=== PATIENT | female | born 1955 | race Caucasian/White ===

== ENCOUNTER 2018-11-16 16:30 | Emergency (ER) | payer OTHER ==
[~2018-11-16] VITALS: Ht 162.6 cm; Wt 43.1 kg
[~2018-11-16 16:30] MED LIST: ALDACTONE50 MG ORAL; BLEPHAMIDE EYE D5 ML BOTH EYES; CEPHALEXIN500 MG ORAL; FUROSEMIDE40 MG ORAL; LEVAQUIN250 M1 ORAL; PREDNISONE50 MG ORAL; THIAMINE HCL100 MG ORAL; TRAMADOL HCL50 MG ORAL; [UNRECOGNIZED DRUG - OTHER]
[2018-11-16] MEDS ORDERED: GLYCOPYRROLATE PO (16:55)
[2018-11-16] MEDS ORDERED: IRON325 M1 PO (16:55)
[2018-11-16] MEDS ORDERED: SERTRALINE HCL50 MG ORAL (16:55)
[2018-11-16] MEDS ORDERED: FORMOTEROL PO (16:55)
[2018-11-16] MEDS ORDERED: METOPROLOL SUC100 MG ORAL (16:55)
[2018-11-16 17:00] VITALS: BP 174/94
--- NOTE | 2018-11-16 17:00 | NUR ---
ED Nurse Note: pt walked in due to back pain, no trauma, pt stated she been having pain at her back for a while and its been worse since 3 days ago. pt stated she has scoliosis. pt not in distress. will continue to monitor.
[2018-11-16] MEDS ORDERED: Ketorolac 60mg Inj IM ONE (17:30)
[2018-11-16] MEDS ORDERED: oxyCODONE HCL/Acetaminophen 5/325mg ORAL ONE (17:30)
--- NOTE | 2018-11-16 17:30 | NUR ---
ED Nurse Note: xray on bedside
--- NOTE | 2018-11-16 17:35 | NUR ---
ED Nurse Note: pt medicated and tolerated well.
[2018-11-16] MEDS ORDERED: NORCO 5-325 TA1 EACH ORAL (18:17)
--- NOTE | 2018-11-16 18:17 | Emergency Room Report ---
History of Present Illness General Chief Complaint: Back Pain-No Injury Source: Patient Present Illness HPI 63-year-old female history of scoliosis presents with right upper back pain after lifting elsa litter a big bag 1 week ago, patient has been taking Naprosyn however patient states she still has pain achy in nature aggravated with movement alleviated with rest no weakness no chest pain no shortness of breath presents for evaluation. She denies chest pain shortness of breath Allergies: Coded Allergies: NO KNOWN ALLERGIES (Unverified Allergy, Unknown, 11/28/14) Patient History Past Medical History: see triage record Last Menstrual Period: na Reviewed Nursing Documentation: PMH: Agreed; PSxH: Agreed Nursing Documentation-PMH Past Medical History: No History, Except For Hx Hypertension: Yes Hx Asthma: Yes Hx COPD: Yes Hx Cancer: No History Of Psychiatric Problem: Yes - depression Hx Neurological Problems: Yes Hx Tremors: Yes Hx Vertigo: Yes Hx Dizziness: Yes Hx Syncope: Yes Hx Headaches: Yes Hx Numbness: Yes Hx Weakness: Yes Hx Fatigue: Yes Review of Systems All Other Systems: negative except mentioned in HPI Physical Exam Vital Signs Date Time Temp Pulse Resp B/P (MAP) Pulse Ox O2 Delivery O2 Flow Rate FiO2 11/16/18 16:49 98.2 84 19 174/94 (120) 98 Room Air Sp02 EP Interpretation: reviewed, normal General Appearance: well appearing, no apparent distress, alert Head: normocephalic, atraumatic Eyes: bilateral eye PERRL, bilateral eye EOMI ENT: uvula midline, moist mucus membranes Neck: supple, thyroid normal, supple/symm/no masses Respiratory: lungs clear, no respiratory distress, no retraction, no accessory muscle use Cardiovascular #1: normal peripheral pulses, regular rate, rhythm, no edema, no gallop, no murmur Gastrointestinal: non tender, soft, no guarding, no rebound Musculoskeletal: normal inspection, other - Tenderness to palpation right upper back, trapezius and upper latissimus dorsi Neurologic: alert, oriented x3 Psychiatric: mood/affect normal Skin: no rash, warm/dry Medical Decision Making Diagnostic Impression: Primary Impression: Upper back strain Qualified Codes: S29.012A - Strain of muscle and tendon of back wall of thorax , initial encounter ER Course 63-year-old female presents with right upper back pain after lifting kitten litter large bag. No low susp for ACS, pneumonia. Most likely muscular strain will disposition patient home with return precautions Cures checked Pain well controlled in ED EKG Diagnostic Results EKG Time: 17:55 EP Interpretation: Atrial fibrillation, rate 86, QTc 4 8, no acute ST elevations, normal axis Chest X-Ray Diagnostic Results Chest X-Ray Diagnostic Results : Chest X-Ray Ordered: Yes # of Views/Limited/Complete: 1 View Indication: Other - right upper back pain Interpretation: other - Scoliosis present Impression: No acute disease Last Vital Signs Date Time Temp Pulse Resp B/P (MAP) Pulse Ox O2 Delivery O2 Flow Rate FiO2 11/16/18 17:00 98.2 84 19 174/94 98 Room Air Disposition: HOME, SELF-CARE Condition: Stable Scripts Hydrocodone Bit/Acetaminophen 5-325* (NORCO 5-325*) 1 Each Tablet 1 TAB ORAL Q6H PRN for For Pain, #12 TAB 0 Refills Prov: Juan Douglas MD 11/16/18 Referrals: NON PHYSICIAN (PCP) [facility] Rody Andrade [facility] Patient Instructions: Back Pain, Adult Additional Instructions: The patient was provided with discharge instructions, notified to follow-up with a primary care doctor and or specialist in the next 24-48 hours, and to return to the ED if they have worsening of their symptoms. Please note that this report is being documented using Endorse technology. This can lead to erroneous entry secondary to incorrect interpretation by the dictating instrument. Juan Douglas MD Nov 16, 2018 18:17
[2018-11-16 18:23] VITALS: BP 160/88
--- NOTE | 2018-11-16 18:23 | NUR ---
ER DISCHARGE NOTE: Patient is cleared to be discharged per ERMD, pt is aox4, on room air, with stable vital signs. pt was given dc and prescription instructions, pt was able to verbalize understanding, pt id band removed without complications. pt is able to ambulate with steady gait. pt took all belongings.
--- NOTE | 2018-11-17 11:07 | Diagnostic Imaging Report ---
Indication: Chest pain Technique: One view of the chest Comparison: none Findings: Lungs and pleural spaces are clear. The heart size is normal. There is again demonstrated thoracic scoliotic deformity. No significant interim change Impression: No acute process
--- NOTE | 2018-11-17 11:30 | Cardiology Report ---
APPROVED REPORT EKG Measurement Heart [id number] sinus with short 3-4 beats of intermittent svt Nonspecific ST and T wave abnormality Prolonged QT Abnormal ECG
== END 2018-11-16 18:23 | disposition home or self-care (01) ==
LOC: EMR 17:30
DX: S29.012A Strain of muscle and tendon of back wall of thorax, initial encounter (principal); M41.9 Scoliosis, unspecified; I10 Essential (primary) hypertension; J44.9 Chronic obstructive pulmonary disease, unspecified; F32.9 Major depressive disorder, single episode, unspecified; I48.91 Unspecified atrial fibrillation; X50.9XXA Other and unspecified overexertion or strenuous movements or postures, initial encounter; Y92.9 Unspecified place or not applicable
CPT/HCPCS: 71045; 93005; 96372; 99283

== ENCOUNTER 2019-06-21 03:20 | Inpatient (IN) | payer OTHER ==
[~2019-06-21] VITALS: Ht 162.6 cm; Wt 43.5 kg
[2019-06-21] VITALS (10 sets, daily range): BP systolic 109–158; BP diastolic 54–105
[~2019-06-21 03:20] MED LIST changes: +FORMOTEROL PO; +GLYCOPYRROLATE PO; +IRON325 M1 PO; +METOPROLOL SUC100 MG ORAL; +NORCO 5-325 TA1 EACH ORAL; +SERTRALINE HCL50 MG ORAL
--- NOTE | 2019-06-21 03:35 | NUR ---
ED Nurse Note: Recieved pt from home, here with c/o sob art rest and on exertion with intermittent chest pain at 7/10 with s/s increasing for past 2 weeks, denies fevers, diarrhea, nausea, or any toehr complaints, pt has history of COPD abd is active smoker, pt immediately gowned and placed on cardiac monitoring with heart rate of 145, o2 sat=96% on RA, will resume care as ordered and closely monitor.
[2019-06-21] MEDS ORDERED: dilTIAZem HCl 25mg/5ml Inj IVP ONE ×2 (03:45→04:45)
--- NOTE | 2019-06-21 04:10 | Emergency Room Report ---
History of Present Illness General Chief Complaint: Dyspnea/Respdistress Source: Patient Present Illness HPI Patient reports that approximately 2 weeks ago she was having some sinus pressure in the forehead on the right side in the upper facial area Soon after that she developed the congestion went down to her chest And today comes in by paramedics for worsening shortness of breath Patient has history of COPD and is currently smoking Denies any fevers Lives by herself is unknown regarding any contact with covid-19 patient's Denies any neck pain or photophobia denies any chest pain she does feel palpitation with fast heart rate as well Patient denies any previous history of irregular heart rate Allergies: Coded Allergies: NO KNOWN ALLERGIES (Unverified Allergy, Unknown, 11/28/14) COVID-19 Screening Contact w/high risk pt: No Recent Travel to affected area: No Experienced COVID-19 symptoms?: Yes COVID-19 symptoms experienced: Shortness of Breath, Cough Patient History Past Medical History: see triage record Last Menstrual Period: n/a Reviewed Nursing Documentation: PMH: Agreed; PSxH: Agreed Nursing Documentation-PMH Hx Hypertension: Yes Hx Asthma: Yes Hx COPD: Yes Hx Cancer: No Hx Neurological Problems: Yes Hx Tremors: Yes Hx Vertigo: Yes Hx Dizziness: Yes Hx Syncope: Yes Hx Headaches: Yes Hx Numbness: Yes Hx Weakness: Yes Hx Fatigue: Yes Review of Systems All Other Systems: negative except mentioned in HPI Physical Exam Vital Signs Date Time Temp Pulse Resp B/P (MAP) Pulse Ox O2 Delivery O2 Flow Rate FiO2 06/21/19 03:18 140 25 127/72 (90) 88 Non-Rebreather 10.0 Sp02 EP Interpretation: reviewed, normal General Appearance: mild distress Head: normocephalic, atraumatic Eyes: bilateral eye PERRL, bilateral eye EOMI ENT: hearing grossly normal, normal pharynx, TMs + canals normal, uvula midline Neck: full range of motion, supple, no meningismus, no bony tend Respiratory: no accessory muscle use - However mildly tachypneic, crackles, wheezing - Bilaterally Cardiovascular #1: no edema, no gallop, no JVD, no murmur, tachycardia, irregularly irregular Gastrointestinal: normal bowel sounds, non tender, soft, no mass, no organomegaly, non-distended, no guarding, no hernia, no pulsatile mass, no rebound Musculoskeletal: normal inspection Neurologic: motor strength/tone normal, filament tester III-XII nml as tested, oriented x3 , sensory intact, responsive Psychiatric: mood/affect normal Skin: no rash Lymphatic: normal inspection, no adenopathy Procedures Critical Care Time Critical Care Time ED minutes for her initial clinical presentation continued care in the emergency room multiple re-evaluations concern for covid-19 and acute decompensation with respiratory failure not including any procedural time Medical Decision Making Diagnostic Impression: Primary Impression: Respiratory distress Additional Impressions: COPD exacerbation Atrial fibrillation with RVR ER Course Patient is a fairly complex patient with multiple differential to consideration including but not limited to cardiac cardiopulmonary and vascular emergencies Patient also has history of COPD and appears to be showing some signs of Decompensation On initial evaluation also shows tachycardic findings with irregular heart rate consistent with atrial fibrillation patient reports that she has no knowledge of having an irregular heart rate Patient required multiple interventions in the ER was given repeat bolus of Cardizem Lovenox was also given along with digoxin Patient's x-ray shows COPD no obvious infiltrate Pulmonary embolism also entertained however patient saturating well, no obvious pleurisy Patient's heart rate has improved however patient required to be on drip for short period of time as well and at this time requires further inpatient care Given the patient's comorbidities and shortness of breath sensation , covid 19 r /o has also been initiated Labs Test 06/21/19 03:28 06/21/19 04:04 Arterial Blood pH 7.400 (7.350-7.450) Arterial Blood Partial Pressure CO2 44.6 mmHg (35.0-45.0) Arterial Blood Partial Pressure O2 115.8 mmHg (75.0-100.0) Arterial Blood HCO3 27.0 mmol/L (22.0-26.0) Arterial Blood Oxygen Saturation 97.7 % (95-100) Arterial Blood Base Excess 1.8 (-2-2) Tirso Test Positive White Blood Count 10.0 K/UL (4.8-10.8) Red Blood Count 5.32 M/UL (4.20-5.40) Hemoglobin 15.1 G/DL (12.0-16.0) Hematocrit 44.9 % (37.0-47.0) Mean Corpuscular Volume 84 FL (80-99) Mean Corpuscular Hemoglobin 28.3 PG (27.0-31.0) Mean Corpuscular Hemoglobin Concent 33.5 G/DL (32.0-36.0) Red Cell Distribution Width 12.6 % (11.6-14.8) Platelet Count 370 K/UL (150-450) Mean Platelet Volume 6.0 FL (6.5-10.1) Neutrophils (%) (Auto) 66.1 % (45.0-75.0) Lymphocytes (%) (Auto) 20.1 % (20.0-45.0) Monocytes (%) (Auto) 8.6 % (1.0-10.0) Eosinophils (%) (Auto) 4.3 % (0.0-3.0) Basophils (%) (Auto) 0.9 % (0.0-2.0) Sodium Level 136 MMOL/L (136-145) Potassium Level 3.8 MMOL/L (3.5-5.1) Chloride Level 97 MMOL/L (98-107) Carbon Dioxide Level 27 MMOL/L (21-32) Anion Gap 12 mmol/L (5-15) Blood Urea Nitrogen 10 mg/dL (7-18) Creatinine 0.8 MG/DL (0.55-1.30) Estimat Glomerular Filtration Rate > 60 mL/min (>60) Glucose Level 123 MG/DL (74-106) Lactic Acid Level 0.90 mmol/L (0.4-2.0) Calcium Level 9.6 MG/DL (8.5-10.1) Total Bilirubin 0.4 MG/DL (0.2-1.0) Aspartate Amino Transf (AST/SGOT) 18 U/L (15-37) Alanine Aminotransferase (ALT/SGPT) 15 U/L (12-78) Alkaline Phosphatase 107 U/L (46-116) Total Creatine Kinase 97 U/L (26-308) Creatine Kinase MB 2.1 NG/ML (0.0-3.6) Creatine Kinase MB Relative Index 2.1 Troponin I 0.017 ng/mL (0.000-0.056) Pro-B-Type Natriuretic Peptide 982 pg/mL (0-125) Total Protein 8.3 G/DL (6.4-8.2) Albumin 3.7 G/DL (3.4-5.0) Globulin 4.6 g/dL Albumin/Globulin Ratio 0.8 (1.0-2.7) Lipase 92 U/L (73-393) EKG Diagnostic Results Rate: tachycardiac Rhythm: other - Atrial fibrillation ST Segments: other - Nonspecific ST and T wave changes Rhythm Strip Diag. Results EP Interpretation: yes Rate: 133 Rhythm: no PVC's, no ectopy, other - Irregularly irregular Chest X-Ray Diagnostic Results Chest X-Ray Diagnostic Results : Chest X-Ray Ordered: Yes # of Views/Limited/Complete: 1 View Indication: Shortness of Breath EP Interpretation: Yes Interpretation: no consolidation, no effusion, no pneumothorax, other - Severe scoliosis COPD Impression: No acute disease - COPD Electronically Signed by: Timothy Magaña DO Last Vital Signs Date Time Temp Pulse Resp B/P (MAP) Pulse Ox O2 Delivery O2 Flow Rate FiO2 06/21/19 03:58 140 127/72 06/21/19 03:35 25 Non-Rebreather 10.0 06/21/19 03:18 88 Status: improved Disposition: ADMITTED INPATIENT Condition: Critical Referrals: [facility],REFERRING (PCP) Timothy Magaña DO Jun 21, 2019 04:10
[2019-06-21] MEDS ORDERED: ALBUTEROL2.5 MG/3 M INH (04:12)
[2019-06-21 04:14] LABS: BASOPHILS % (AUTO) 0.9 % (0.0-2.0); EOSINOPHILS % (AUTO) 4.3 % (0.0-3.0); HEMATOCRIT 44.9 % (37.0-47.0); HEMOGLOBIN 15.1 G/DL (12.0-16.0); LYMPHOCYTES % (AUTO) 20.1 % (20.0-45.0); MEAN CORPUSCULAR VOLUME 84 FL (80-99); MONOCYTES % (AUTO) 8.6 % (1.0-10.0); NEUTROPHILS % (AUTO) 66.1 % (45.0-75.0); PLATELET COUNT 370 K/UL (150-450); RED BLOOD COUNT 5.32 M/UL (4.20-5.40); RED CELL DISTRIBUTION WIDTH 12.6 % (11.6-14.8)
[2019-06-21] MEDS ORDERED: Solu-MEDROL 125mg Inj IVP ONE (04:15)
[2019-06-21] MEDS ORDERED: Enoxaparin 60mg Inj SUBQ ONE (04:15)
[2019-06-21] MEDS ORDERED: dilTIAZem HCl CD 120mg cap ORAL ONE (04:15)
[2019-06-21] MEDS ORDERED: Albuterol 90mcg Inhaler 8gm INH PRN (04:15)
[2019-06-21 04:36] LABS: ANION GAP 12 mmol/L (5-15); BLOOD UREA NITROGEN 10 mg/dL (7-18); CALCIUM 9.6 MG/DL (8.5-10.1); CARBON DIOXIDE 27 MMOL/L (21-32); CHLORIDE 97 MMOL/L (98-107); CREATININE 0.8 MG/DL (0.55-1.30); POTASSIUM 3.8 MMOL/L (3.5-5.1); SODIUM 136 MMOL/L (136-145)
[2019-06-21] MEDS ORDERED: Digoxin 0.5mg/2ml Inj IVP ONE (04:45)
[2019-06-21 04:50] LABS: ALANINE AMINOTRANSFERASE 15 U/L (12-78); ALBUMIN 3.7 G/DL (3.4-5.0); ALBUMIN/GLOBULIN RATIO 0.8 (1.0-2.7); ALKALINE PHOSPHATASE 107 U/L (46-116); ASPARTATE AMINO TRANSFERASE 18 U/L (15-37); BILIRUBIN,TOTAL 0.4 MG/DL (0.2-1.0); CKMB 2.1 NG/ML (0.0-3.6); CREATINE KINASE 97 U/L (26-308)
--- NOTE | 2019-06-21 05:10 | NUR ---
ED Nurse Note: Pt in bed and continues to have severe SOB, pt heart rate fluctuating and rhythm is A-Fib unciontrolled, meds given and not effective, aware, pt assisted to bedside commode, tolerated poorly, SOB increased and mild chest pain occurred, pt sitting on side of bed for respiratory distress and constantly stating "i cant breathe", O2 loe=393% on o2 2l n/c, MD aware of all s/s and results of meds, will continue to closely monitor and prepare for admission to hospital.
[2019-06-21 05:28] LABS: APPEARANCE,URINE CLEAR; BILIRUBIN, URINE NEGATIVE (NEGATIVE); COLOR,URINE PALE YELLOW; GLUCOSE, URINE (UA) NEGATIVE (NEGATIVE); KETONES,URINE NEGATIVE (NEGATIVE); LEUKOCYTE ESTERASE ,URINE NEGATIVE (NEGATIVE); NITRITE,URINE NEGATIVE (NEGATIVE); PH,URINE 7 (4.5-8.0); PROTEIN,URINE 2+ (NEGATIVE); UROBILINOGEN,URINE NORMAL MG/DL (0.0-1.0)
[2019-06-21] MEDS ORDERED: dilTIAZem HCl 25mg/5ml Inj IV ONE (05:30)
[2019-06-21] MEDS ORDERED: HYDROcodone/Acetamin 10/325 tab ORAL ONE (05:45)
--- NOTE | 2019-06-21 06:15 | NUR ---
ED Nurse Note: Pt sleeping in bed, awakens easily, remains on cardiac monitoring, appears to have converted back to NSR rhythm, heart rate at 68, pt b/p wnl also, IV site intact and patent and pt medicated for pain, pt is to be admitted to hospital, will resume care as ordered and continue to closely monitor, and prepare for admission, also specimen for covid testing done and snet and pt on isolation precautions as ordered.
--- NOTE | 2019-06-21 08:09 | NUR ---
ED Nurse Note: received pt in bed resting. pt just came back from bedside commode by herself. per pt, she feels strong enough to use bedside commode by herself. pt was told to let nurse know for help to prevent any falls. pt verbalized understanding.
--- NOTE | 2019-06-21 09:11 | Diagnostic Imaging Report ---
Indication: Shortness of breath Technique: One view of the chest Comparison: 11/16/2018 Findings: There is marked thoracic scoliotic deformity again demonstrated. The lungs are hyperinflated. The heart size is normal. The aorta is tortuous and calcified. Impression: No acute process
--- NOTE | 2019-06-21 10:04 | NUR ---
ED Nurse Note: pt requested to speak to ERMD regarding lab and x-ray results. ERMD made aware.
[2019-06-21] MEDS ORDERED: Heparin 1000 units/ml 1ml Vial INJ ONE (10:15)
--- NOTE | 2019-06-21 10:43 | NUR ---
ED Nurse Note: striker bed provided. pt was able to ambulate to striker bed with steady gait. pt is on cafeteria monitor.
[2019-06-21] MEDS ORDERED: Azithromycin 250mg tab ORAL SCH (10:45)
[2019-06-21] MEDS: NS w/KCl 20mEq 1000ml 1,000 ML IV SCH (11:22)
[2019-06-21] MEDS: Solu-MEDROL 40mg Inj IVP SCH ×2 (11:39→18:12)
--- NOTE | 2019-06-21 12:00 | History and Physical Report ---
DATE OF ADMISSION: 06/21/2019 HISTORY OF PRESENT ILLNESS: This is a 64-year-old female with a history of COPD. She came to the hospital with sinus pressure on the forehead as well as facial pain. She also reports chest congestion, shortness of breath. She is an active smoker with COPD. The patient was found to be in rapid AFib with RVR and received Cardizem with improvement in heart rate. PAST MEDICAL HISTORY: Notable for COPD. ALLERGIES: None reported. PREVIOUS SURGERIES: None reported. REVIEW OF SYSTEMS: Denies any headaches, hematemesis, melena, or hematochezia. PHYSICAL EXAMINATION: GENERAL: Reveals a 64-year-old female. VITAL SIGNS: Blood pressure is 120/70, heart rate is 110, respirations are 22, and O2 sat is 80% on non-rebreather mask. LUNGS: Clear breath sounds bilaterally. HEART: Normal heart sounds. ABDOMEN: Soft. EXTREMITIES: There is no edema. NEUROLOGIC: Nonfocal. LABORATORY DATA: Lab testing shows normal CBC and BMP. Lactic acid 0.9. Troponin, first one 0.01. ABG, pH 7.40, pCO2 44, and pO2 115. Urinalysis 2+ protein. Nares is negative for influenza A and B. Imaging studies, the patient underwent a chest x-ray, which shows clear bilaterally. IMPRESSION: 1. Exacerbation of COPD. 2. Hypoxemia. 3. Rule out COVID-19. 4. AFib with RVR. DISCUSSION: Admit to the hospital. We will start IV Cardizem, IV steroids, start Plaquenil and azithromycin. We will follow as pulmonary consult and order oxygen. Delonte Tomlinson M.D. DR: ANSLEY JOB#: [id number] CC:
--- NOTE | 2019-06-21 12:48 | NUR ---
ED Nurse Note: blood sample for PT and PTT sent to lab.
[2019-06-21] MEDS ORDERED: Heparin 25,000u/D5W 500ml 500 ML IV SCH ×2 (14:00→20:45)
--- NOTE | 2019-06-21 14:28 | NUR ---
ED Nurse Note: pt reported anxiousness. ERMD made aware.
--- NOTE | 2019-06-21 15:08 | NUR ---
ED Nurse Note: Received pt in bed resting, with eyes close. Patient's VSS at this time, heparine running at rate 17.96 mL/hr.
--- NOTE | 2019-06-21 19:13 | NUR ---
ED Nurse Note: Patient's IV site was changed from L AC to R forearm, due to aktive bleeding.
[2019-06-21] MEDS ORDERED: Heparin 5000 units/ml inj IV SCH (20:45)
--- NOTE | 2019-06-21 20:45 | NUR ---
ED Nurse Note: Per pharmacy, rescan the previous heparin drip and do not pull out a second drip. Heparin drip titrated to 22 units/kg/hr
--- NOTE | 2019-06-21 21:42 | Infectious Diseases Prog Note ---
Assessment/Plan Assessment/Plan Patient in ER: Full consult to follow: A) 1) copd exacerbation 2) rule out covid19 virus infection 3) pmh noted P) 1) hydroxychloroquine and azithromycin 2) f/u on covid-19 testing 3) on steroids 4) thank you Subjective Allergies: Coded Allergies: NO KNOWN ALLERGIES (Unverified Allergy, Unknown, 11/28/14) Objective Vital Signs Last 24 Hour Vital Signs Date Time Temp Pulse Resp B/P (MAP) Pulse Ox O2 Delivery O2 Flow Rate FiO2 06/21/19 21:36 77 161/79 06/21/19 19:40 98.5 88 18 158/91 95 Nasal Cannula 2.0 06/21/19 18:23 98.3 78 18 132/67 95 Nasal Cannula 2.0 06/21/19 15:00 98.3 75 18 145/78 98 Nasal Cannula 2.0 06/21/19 12:00 98.3 78 18 138/89 100 Nasal Cannula 2.0 06/21/19 11:21 73 132/113 06/21/19 10:00 98.1 84 18 126/77 99 Nasal Cannula 2.0 06/21/19 08:08 98.1 81 18 148/105 99 Nasal Cannula 2.0 06/21/19 07:00 98.1 06/21/19 06:15 98.3 64 25 109/54 99 Nasal Cannula 2.0 06/21/19 05:35 118 142/91 06/21/19 05:15 98.3 118 25 142/91 99 Nasal Cannula 2.0 06/21/19 04:54 134 06/21/19 04:51 134 145/66 06/21/19 04:22 134 145/66 06/21/19 04:15 98.3 134 25 145/66 99 Nasal Cannula 2.0 06/21/19 03:58 140 127/72 06/21/19 03:35 140 25 Non-Rebreather 10.0 06/21/19 03:18 140 25 137/72 (93) 88 Non-Rebreather 10.0 Height (Feet): 5 Height (Inches): 5.00 Weight (Pounds): 110 Microbiology Date/Time Source Procedure Growth Status 06/21/19 04:04 Nasal Nares - Final Complete 06/21/19 04:04 Nasal Nares - Final Complete Laboratory Tests Test 06/21/19 03:28 06/21/19 04:04 06/21/19 05:00 06/21/19 12:50 Arterial Blood pH 7.400 (7.350-7.450) Arterial Blood Partial Pressure CO2 44.6 mmHg (35.0-45.0) Arterial Blood Partial Pressure O2 115.8 mmHg (75.0-100.0) H Arterial Blood HCO3 27.0 mmol/L (22.0-26.0) H Arterial Blood Oxygen Saturation 97.7 % (95-100) Arterial Blood Base Excess 1.8 (-2-2) Tirso Test Positive White Blood Count 10.0 K/UL (4.8-10.8) Red Blood Count 5.32 M/UL (4.20-5.40) Hemoglobin 15.1 G/DL (12.0-16.0) Hematocrit 44.9 % (37.0-47.0) Mean Corpuscular Volume 84 FL (80-99) Mean Corpuscular Hemoglobin 28.3 PG (27.0-31.0) Mean Corpuscular Hemoglobin Concent 33.5 G/DL (32.0-36.0) Red Cell Distribution Width 12.6 % (11.6-14.8) Platelet Count 370 K/UL (150-450) Mean Platelet Volume 6.0 FL (6.5-10.1) L Neutrophils (%) (Auto) 66.1 % (45.0-75.0) Lymphocytes (%) (Auto) 20.1 % (20.0-45.0) Monocytes (%) (Auto) 8.6 % (1.0-10.0) Eosinophils (%) (Auto) 4.3 % (0.0-3.0) H Basophils (%) (Auto) 0.9 % (0.0-2.0) Sodium Level 136 MMOL/L (136-145) Potassium Level 3.8 MMOL/L (3.5-5.1) Chloride Level 97 MMOL/L (98-107) L Carbon Dioxide Level 27 MMOL/L (21-32) Anion Gap 12 mmol/L (5-15) Blood Urea Nitrogen 10 mg/dL (7-18) Creatinine 0.8 MG/DL (0.55-1.30) Estimat Glomerular Filtration Rate > 60 mL/min (>60) Glucose Level 123 MG/DL (74-106) H Lactic Acid Level 0.90 mmol/L (0.4-2.0) Calcium Level 9.6 MG/DL (8.5-10.1) Total Bilirubin 0.4 MG/DL (0.2-1.0) Aspartate Amino Transf (AST/SGOT) 18 U/L (15-37) Alanine Aminotransferase (ALT/SGPT) 15 U/L (12-78) Alkaline Phosphatase 107 U/L (46-116) Total Creatine Kinase 97 U/L (26-308) Creatine Kinase MB 2.1 NG/ML (0.0-3.6) Creatine Kinase MB Relative Index 2.1 Troponin I 0.017 ng/mL (0.000-0.056) Pro-B-Type Natriuretic Peptide 982 pg/mL (0-125) H Total Protein 8.3 G/DL (6.4-8.2) H Albumin 3.7 G/DL (3.4-5.0) Globulin 4.6 g/dL Albumin/Globulin Ratio 0.8 (1.0-2.7) L Lipase 92 U/L (73-393) Urine Color Pale yellow Urine Appearance Clear Urine pH 7 (4.5-8.0) Urine Specific [place] 1.010 (1.005-1.035) Urine Protein 2+ (NEGATIVE) H Urine Glucose (UA) Negative (NEGATIVE) Urine Ketones Negative (NEGATIVE) Urine Blood Negative (NEGATIVE) Urine Nitrite Negative (NEGATIVE) Urine Bilirubin Negative (NEGATIVE) Urine Urobilinogen Normal MG/DL (0.0-1.0) Urine Leukocyte Esterase Negative (NEGATIVE) Urine RBC 0-2 /HPF (0 - 2) Urine WBC 0 /HPF (0 - 2) Urine Squamous Epithelial Cells Few /LPF (NONE/OCC) Urine Bacteria None /HPF (NONE) Activated Partial Thromboplast Time 29 SEC (23-33) Test 06/21/19 19:50 Activated Partial Thromboplast Time 45 SEC (23-33) H Current Medications Medications (Trade) Dose Ordered Sig/Virgilio Route PRN Reason Start Time Stop Time Status Last Admin Dose Admin Albuterol Sulfate (Proventil MDI) 2 puff Q4H PRN INH Shortness of Breath 06/21/19 04:15 09/19/19 04:14 Azithromycin (Zithromax) 250 mg DAILY ORAL 06/22/19 09:00 06/25/19 09:01 Dextrose (Dextrose 50%) 25 ml Q30M PRN IV Hypoglycemia 06/21/19 10:15 09/19/19 10:14 Dextrose (Dextrose 50%) 50 ml Q30M PRN IV Hypoglycemia 06/21/19 10:15 09/19/19 10:14 Heparin Sodium (Porcine) (Heparin 5000 units/ml) 4,000 units ONCE IV 06/21/19 20:45 06/21/19 22:00 06/21/19 21:30 Heparin Sodium/ Dextrose 500 ml @ 21.954 mls/ hr ADJUST PER PROTOCOL IV 06/21/19 20:45 07/21/19 20:44 Hydroxychloroquine Sulfate (Plaquenil) 200 mg BID ORAL 06/22/19 09:00 06/25/19 18:01 Methylprednisolone Sodium Succinate (Solu-MEDROL) 40 mg EVERY 6 HOURS IVP 06/21/19 12:00 09/19/19 11:59 06/21/19 18:12 Metoprolol Tartrate (Lopressor) 25 mg EVERY 12 HOURS ORAL 06/21/19 11:00 09/19/19 10:59 06/21/19 21:36 Potassium Chloride/Sodium Chloride 1,000 ml @ 75 mls/hr [id number] IV 06/21/19 11:15 07/21/19 11:14 06/21/19 11:22 Diomedes Saleem MD Jun 21, 2019 21:42
[2019-06-22] MEDS ORDERED: Enoxaparin 60mg Inj SUBQ SCH (00:15)
[2019-06-22 00:40] VITALS: BP 158/82
--- NOTE | 2019-06-22 00:40 | NUR ---
TRANSFER TO FLOOR: Patient transferred to [facility] via gurney accompanied by rn and tech with transport 19 protocol as ordered, per dr. Tomlinson. Report given to rn. Belongings sent with patient
[2019-06-22 01:30] VITALS: BP 140/90
--- NOTE | 2019-06-22 01:30 | NUR ---
NURSE NOTES: Received pt from Calvin Little RN. pt transferred via hospital bed. pt is AO X4, denies pain at this time. pt is on 2 L O2 via NC, saturation: 98%, no respiratory distress noted. new gown and mold capper helper applied. mold capper helper shows SR with HR of 82. no acute cardiac distress noted. belongings noted and reviewed with patient. blanchable redness noted on bilateral heels. LFA 20 g IV site is patent and intact, running Heparin drip as per protocol and NS with 20 meq KCl at 75 cc/hr. bed in lowest position and locked, siderails up X2, call light within reach. will continue to monitor.
[2019-06-22] MEDS: Solu-MEDROL 40mg Inj IVP SCH ×3 (01:53→12:46)
[2019-06-22] MEDS: NS w/KCl 20mEq 1000ml 1,000 ML IV SCH ×2 (01:54→13:55)
[2019-06-22] MEDS: dilTIAZem HCl 60mg tab ORAL SCH ×3 (01:55→14:00)
--- NOTE | 2019-06-22 02:30 | Consultation ---
DATE OF CONSULTATION: 06/21/2019 CARDIOLOGY CONSULTATION CONSULTING PHYSICIAN: Earl Bradshaw M.D. REFERRING PHYSICIAN: Delonte Tomlinson M.D. REASON: Rapid atrial fibrillation. HISTORY OF PRESENT ILLNESS: This 64-year-old female with a known history of COPD presented to the hospital with facial pain and sinus tenderness, congestion of the chest, and shortness of breath and was found to have rapid atrial fibrillation. Concerns were raised over an acute COVID infection. The patient was placed on a non-rebreather mask. In the emergency room, she was given IV diltiazem times several doses. Her condition improved and hospitalization is initiated. PAST MEDICAL HISTORY: Hypertension, COPD. SOCIAL HISTORY: Active smoker 50+ pack years. FAMILY HISTORY: Noncontributory. MEDICATIONS: Reviewed and reconciled. ALLERGIES: None known. REVIEW OF SYSTEMS: A 10-point review of systems performed. All pertinent positives are outlined above. PHYSICAL EXAMINATION: VITAL SIGNS: On presentation, blood pressure 127/72, heart rate 140, respirations 25. Presently heart rate is in the 80s. LUNGS: Diminished breath sounds. Rhonchi. Expiratory wheezes. CARDIAC: Irregularly irregular rhythm. Normal S1, S2. ABDOMEN: Soft. EXTREMITIES: No edema. NEUROLOGIC: Slight resting tremor. DIAGNOSTIC AND LABORATORY DATA: Chest x-ray, no acute process. ABG, 7.40, 45, 115. White count 10, hemoglobin 15. BUN 10, creatinine 0.8, potassium 3.8. Lactate is normal at 0.9. EKG, atrial fibrillation, nonspecific ST-T wave changes, ventricular rate 133. IMPRESSION: 1. Paroxysmal atrial fibrillation with rapid ventricular response, likely precipitated by acute respiratory insufficiency and elevated pulmonary artery systolic pressures. 2. COPD exacerbation. 3. Upper respiratory infection, rule out COVID-19. 4. Acute diastolic congestive heart failure. PLAN: 1. Respiratory treatments including bronchodilators, steroids, and antimicrobials. 2. Cardizem for rate control. 3. Reassess for anticoagulation over the next 24 hours. 4. No role for diuresis presently. 5. Echocardiogram to assess for signs of structural heart disease and estimate PA systolic pressure. Earl Bradshaw M.D. DR: DERICK JOB#: [id number] CC:
[2019-06-22 04:00] VITALS: BP 145/84
[2019-06-22 06:28] LABS: HEMOGLOBIN 13.5 G/DL (12.0-16.0); MEAN CORPUSCULAR VOLUME 84 FL (80-99); PLATELET COUNT 372 K/UL (150-450); RED BLOOD COUNT 4.76 M/UL (4.20-5.40); WHITE BLOOD COUNT 17.4 K/UL (4.8-10.8)
[2019-06-22 06:48] LABS: ANION GAP 9 mmol/L (5-15); BLOOD UREA NITROGEN 13 mg/dL (7-18); CALCIUM 9.3 MG/DL (8.5-10.1); CARBON DIOXIDE 26 MMOL/L (21-32); CHLORIDE 101 MMOL/L (98-107); CHOLESTEROL 180 MG/DL (< 200); CREATININE 0.6 MG/DL (0.55-1.30); HDL CHOLESTEROL 46 MG/DL (40-60); POTASSIUM 4.1 MMOL/L (3.5-5.1); SODIUM 136 MMOL/L (136-145); TRIGLYCERIDES 48 MG/DL (30-150)
--- NOTE | 2019-06-22 07:12 | NUR ---
NURSE NOTES: Received patient in bed, patient is alert awake x4 ambulate steady gait, breathing unlabored and even, able to speak in full sentences. patient on a 5 lead monitor, sinus rhythm, vital signs stable, see flowsheet. call light within reach, bed in lowest position, siderails up and bed locked.
--- NOTE | 2019-06-22 07:30 | NUR ---
NURSE NOTES: per Mio from pharmacy, pt's PTT is therapeutic, heparin drip rate remains the same as per protocol. PTT to be scheduled for tomorrow AM. will carry out.
[2019-06-22 08:00] VITALS: BP 134/79
--- NOTE | 2019-06-22 08:19 | NUR ---
HAND-OFF: Report given to LACI Lucio. endorsed plan of care. endorsed incoming RN to follow up with Dr. Bradshaw regarding Lovenox vs. Heparin drip.
[2019-06-22] MEDS ORDERED: Azithromycin 250mg tab ORAL SCH (09:00)
--- NOTE | 2019-06-22 09:49 | NUR ---
RD ASSESSMENT & RECOMMENDATIONS SEE CARE ACTIVITY FOR COMPLETE ASSESSMENT DAILY ESTIMATED NEEDS: Needs based on Underweight, COPD/ 43.5kg 30-35 kcals/kg 3175-0966 total kcals 1-1.5 g protein/kg 44-66 g total protein 25-30 mL/kg 9398-6708 total fluid mLs NUTRITION DIAGNOSIS: * Increased kcal/prot needs R/T underweight status, respiratory status as evidenced by pt @ 83% IBW w/ low BMI per guidelines, h/o COPD. * Decreased sodium intake needs R/T cardiac hx as evidenced by dx of afib and CHF. CURRENT DIET:REGULAR PO DIET RECOMMENDATIONS: LOW NA ADDITIONAL RECOMMENDATIONS: * Standing wt for accurate CBW * Monitor PO intake closely -> Add Ensure Enlive once daily for now, monitor need to increase and add snacks * Monitor BGs closely while on Solumedrol
--- NOTE | 2019-06-22 09:59 | NUR ---
*-* INSURANCE *-* ALL AVAILABLE CLINICALS HAVE BEEN FAXED TO: [facility] P: [phone] F: [phone] & [facility] F: [phone]
--- NOTE | 2019-06-22 10:03 | NUR ---
NURSE NOTES: Dr. Tomlinson at bedside, patient is ok for the transfer.
--- NOTE | 2019-06-22 10:31 | Pulmonology Progress Note ---
Assessment/Plan Assessment/Plan IMPRESSION: 1. Exacerbation of COPD. 2. Hypoxemia. 3. Rule out COVID-19. 4. AFib with RVR. DISCUSSION: Admit to the hospital. Now off IV Cardizem. Continue IV steroids, Plaquenil and azithromycin. I will follow as pulmonary consult Oxygen as needed. Delonte Tomlinson M.D. Subjective Interval Events: Looking better Constitutional: Reports: no symptoms HEENT: Repors: no symptoms Respiratory: Reports: dry cough, shortness of breath Cardiovascular: Reports: no symptoms Gastrointestinal/Abdominal: Reports: no symptoms Genitourinary: Reports: no symptoms Allergies: Coded Allergies: NO KNOWN ALLERGIES (Unverified Allergy, Unknown, 11/28/14) Objective Last 24 Hour Vital Signs Date Time Temp Pulse Resp B/P (MAP) Pulse Ox O2 Delivery O2 Flow Rate FiO2 06/22/19 09:30 69 145/84 06/22/19 08:00 2.0 06/22/19 08:00 97.3 69 20 134/79 (97) 98 06/22/19 08:00 Nasal Cannula 2.0 06/22/19 06:39 69 145/84 06/22/19 04:00 2.0 06/22/19 04:00 97.3 69 24 145/84 (104) 98 06/22/19 04:00 61 06/22/19 04:00 Nasal Cannula 2.0 06/22/19 02:11 Nasal Cannula 2.0 06/22/19 01:55 82 140/90 06/22/19 01:30 97.2 82 24 140/90 (107) 98 06/22/19 01:05 61 06/22/19 00:40 98.9 78 18 158/82 95 Nasal Cannula 2.0 72 06/22/19 00:40 98.9 78 18 158/82 95 Nasal Cannula 2.0 06/21/19 21:57 98.9 72 18 158/82 95 Nasal Cannula 2.0 06/21/19 21:36 77 161/79 06/21/19 19:40 98.5 88 18 158/91 95 Nasal Cannula 2.0 06/21/19 18:23 98.3 78 18 132/67 95 Nasal Cannula 2.0 06/21/19 15:00 98.3 75 18 145/78 98 Nasal Cannula 2.0 06/21/19 12:00 98.3 78 18 138/89 100 Nasal Cannula 2.0 06/21/19 11:21 73 132/113 Intake and Output 06/21/19 06/22/19 19:00 07:00 Intake Total 225 ml 757.5 ml Balance 225 ml 757.5 ml Intake IV Total 225 ml 757.5 ml General Appearance: no acute distress HEENT: normocephalic Respiratory/Chest: chest wall non-tender, lungs clear Cardiovascular: normal peripheral pulses Abdomen: normal bowel sounds Microbiology Date/Time Source Procedure Growth Status 06/21/19 04:04 Nasal Nares - Final Complete 06/21/19 04:04 Nasal Nares - Final Complete Laboratory Tests 06/21/19 12:50: Activated Partial Thromboplast Time 29 06/21/19 19:50: Activated Partial Thromboplast Time 45H 06/22/19 05:15: Activated Partial Thromboplast Time 88H, White Blood Count 17.4#H, Red Blood Count 4.76, Hemoglobin 13.5, Hematocrit 40.0, Mean Corpuscular Volume 84, Mean Corpuscular Hemoglobin 28.3, Mean Corpuscular Hemoglobin Concent 33.6, Red Cell Distribution Width 13.0, Platelet Count 372, Mean Platelet Volume 5.7L, Neutrophils (%) (Auto) , Lymphocytes (%) (Auto) , Monocytes (%) (Auto) , Eosinophils (%) (Auto) , Basophils (%) (Auto) , Differential Total Cells Counted 100, Neutrophils % (Manual) 93H, Lymphocytes % (Manual) 6L, Monocytes % (Manual) 1, Eosinophils % (Manual) 0, Basophils % (Manual) 0, Band Neutrophils 0 , Platelet Estimate Adequate, Platelet Morphology Normal, Red Blood Cell Morphology Normal, D-Dimer 0.63H, Sodium Level 136, Potassium Level 4.1, Chloride Level 101, Carbon Dioxide Level 26, Anion Gap 9, Blood Urea Nitrogen 13 , Creatinine 0.6, Estimat Glomerular Filtration Rate > 60, Glucose Level 135H, Calcium Level 9.3, Magnesium Level 1.8, Troponin I 0.014, Triglycerides Level 48 , Cholesterol Level 180, LDL Cholesterol 121H, HDL Cholesterol 46, Cholesterol/ HDL Ratio 3.9 Current Medications Medications (Trade) Dose Ordered Sig/Virgilio Route PRN Reason Start Time Stop Time Status Last Admin Dose Admin Albuterol Sulfate (Proventil MDI) 2 puff Q4H PRN INH Shortness of Breath 06/21/19 04:15 09/19/19 04:14 Azithromycin (Zithromax) 250 mg DAILY ORAL 06/22/19 09:00 06/25/19 09:01 06/22/19 09:30 Dextrose (Dextrose 50%) 25 ml Q30M PRN IV Hypoglycemia 06/21/19 10:15 09/19/19 10:14 Dextrose (Dextrose 50%) 50 ml Q30M PRN IV Hypoglycemia 06/21/19 10:15 09/19/19 10:14 Diltiazem HCl (Cardizem) 60 mg EVERY 8 HOURS ORAL 06/22/19 00:00 07/22/19 00:00 06/22/19 06:39 Enoxaparin Sodium (Lovenox) 60 mg EVERY 12 HOURS SUBQ 06/22/19 00:15 09/20/19 00:14 UNV Heparin Sodium/ Dextrose 500 ml @ 21.954 mls/ hr ADJUST PER PROTOCOL IV 06/21/19 20:45 07/21/19 20:44 Hydroxychloroquine Sulfate (Plaquenil) 200 mg BID ORAL 06/22/19 09:00 06/25/19 18:01 06/22/19 09:30 Methylprednisolone Sodium Succinate (Solu-MEDROL) 40 mg EVERY 6 HOURS IVP 06/21/19 12:00 09/19/19 11:59 06/22/19 06:38 Metoprolol Tartrate (Lopressor) 25 mg EVERY 12 HOURS ORAL 06/21/19 11:00 09/19/19 10:59 06/22/19 09:30 Potassium Chloride/Sodium Chloride 1,000 ml @ 75 mls/hr [id number] IV 06/21/19 11:15 07/21/19 11:14 06/22/19 01:54 Delonte Tomlinson MD Jun 22, 2019 10:31
--- NOTE | 2019-06-22 10:35 | NUR ---
CASE MANAGEMENT: REVIEW 64 YEAR OLD FEMALE BIBA FROM HOME CC: SOB x2 DAYS . COUGH . Hx COPD & CHF SI: A-FIB w/RVR . COPD EXACERBATION . COVID-19 VIRUS r/o T 98.3 HR 140 RR 25 BP 145/66 SAT 88% NON-REBREATHER FLOW RATE 10.0 TROP I 0.017 BNP 982 ABG: PH 7.4 PCO2 44.6 PO2 115.8 HCO3 27.0 SAT 97.7 CXR -- NO ACUTE PROCESS COVID-19 VIRUS IN PROCESS IS: CARDIZEM 10MG IV X1 @03:46 CARDIZEM 20MG IV X1 @05:30 CARDIZEM 120MG ORAL X1 @ 04:15 LOVENOX 6MG SUBQ X1 SOLU MEDROL 125MG IV X1 MAG SULFATE 100ML IV X1 DIGOXIN 0.5MG X1 NS IVF BOLUS X1 STEP DOWN UNIT STATUS DCP: PATIENT IS FROM HOME
[2019-06-22 12:00] VITALS: BP 140/82
--- NOTE | 2019-06-22 12:17 | NUR ---
[facility] RECEIVED A CALL FROM JESSIKA STATING THEY WOULD LIKE TO MOVE THE PATIENT TO [facility]. [facility] [phone] OPT [phone]. LEFT MESSAGE. AWAITING CALL BACK.
--- NOTE | 2019-06-22 13:02 | NUR ---
NURSE NOTES: per Dr. Bradshaw's verbal order, ok to DC lovenox.
--- NOTE | 2019-06-22 13:43 | NUR ---
CASE MANAGEMENT: DCP PATIENT TO TRANSFER TO [facility]# [phone] TRANSPORTATION PROVIDED BY [facility] / [facility] PER JESSIKA [phone] / [facility] PATIENT IN AGREEMENT WITH TRANSFER
--- NOTE | 2019-06-22 13:58 | NUR ---
NURSE NOTES: 1351 Report given to [facility],patient was notified she is being transferred to [facility] and conservator-Roman Desai,patient stable,sent belongings,copy of chart given to ambulance for the nurse
--- NOTE | 2019-06-22 14:07 | NUR ---
NURSE NOTES: patient is being transferred to [facility] via [facility], report given to Amalia AGUERO by MARLO Garcia, endorsed all plan of care to Amalia AGUERO.
--- NOTE | 2019-06-22 21:15 | Progress Note ---
DATE: 06/22/2019 CARDIOLOGY PROGRESS NOTE SUBJECTIVE: Patient remains on a monitored rhythm. Still with episodes of atrial fibrillation, but now rate controlled. Less shortness of breath. OBJECTIVE: VITAL SIGNS: Blood pressure 145/84, heart rate 61, respirations 24, afebrile. LUNGS: Few rhonchi. CARDIAC: Irregularly irregular rhythm. Normal S1, S2. ABDOMEN: Soft. EXTREMITIES: No edema. LABORATORY DATA: White count 17, hemoglobin 13, potassium 4.1, magnesium 1.8. Troponin 0.014. Total cholesterol 180 with LDL 121. IMPRESSION: 1. Paroxysmal atrial fibrillation, now rate controlled and spontaneously appeared to be converting to sinus rhythm. No signs of myocardial infarction. 2. Resolved myocardial ischemia. 3. Favorable lipid panel. 4. COPD exacerbation. 5. Acute bronchospasm. 6. Acute diastolic congestive heart failure, improved. PLAN: 1. Continue Cardizem. 2. Continue full anticoagulation until maintaining sinus rhythm for at least 24 hours and then reassess. 3. Limit use of beta-agonist as able. 4. Cardiac monitoring. 5. Possibly we will transfer to a contracted facility. Earl Bradshaw M.D. DR: DERICK JOB#: [id number] CC:
--- NOTE | 2019-06-23 10:11 | Discharge Summary ---
Discharge Summary Discharge Summary _ DATE OF ADMISSION: 06/21/2019 DATE OF DISCHARGE: 06/22/2019 DISCHARGED BY: Dr. Tomlinson REASON FOR ADMISSION: 64 years old female with past medical history of COPD, presented to the hospital complaining of sinus pressure on the forehead and facial pain. Patient reported shortness of breath and chest congestion. Patient reported being active smoker. Patient was tachycardic , tachypneic and hypoxic. Patient initially was placed on 100% nonrebreathing mask. Laboratory work-up revealed no leukocytosis , stable hemoglobin, hematocrit and platelet count. Stable electrolytes and renal parameters. Lactic acid 0.9. Troponin 0.017, pro BNP 982. EKG revealed atrial fibrillation with rapid ventricular response. Patient received Cardizem with improvement in heart rate. Chest x-ray revealed evidence of COPD but no acute cardiopulmonary pathology. Influenza swab was negative. Patient was tested for COVID 19 infection. Patient subsequently admitted to stepdown unit for further management. CONSULTANTS: potato chip fryer Dr.Kattan WEAVER specialist Dr. Saleem [facility] COURSE: Patient admitted to stepdown unit and was on contact and droplet precautions. Patient started on Plaquenil and azithromycin. Blood cultures were negative. COVID 19 was not detected. Plaquenil stopped. Supplemental oxygen provided and titrated to keep pulse oximetry above 92%. Nebulizing treatment with bronchodilator provided [id number]. Patient started on IV steroids with plan for fast tapering. Heart rate was controlled with Cardizem and beta-rolando. DVT prophylaxis provided. Per potato chip fryer paroxysmal atrial fibrillation was likely precipitated by acute respiratory insufficiency and elevated pulmonary artery systolic pressure. Entertainment [employer] Correspondent recommended to reassess for need for anticoagulation over the next 24 hours. No need for diuresis at this time. Supportive care provided. Transfer was arranged to in [facility]. Patient was stable for transfer. FINAL DIAGNOSES: COPD exacerbation Paroxysmal atrial fibrillation with rapid ventricular response Hypoxemia Suspected COVID 19 infection -ruled out Acute diastolic congestive heart failure DISCHARGE MEDICATIONS: List of medication was sent to accepting facility. DISCHARGE INSTRUCTIONS: Patient was transferred to [facility]. Patient was stable for transfer. I have been assigned to dictate discharge summary for this account. I was not involved in the patient's management. Raina Dumont NP Jun 23, 2019 10:11
--- NOTE | 2019-06-23 12:29 | NUR ---
*-* INSURANCE *-* UPDATED CLINICAL AND DISCHARGE SUMMARY HAS BEEN FAXED TO: [facility]NETT MCCARTH[facility] P: [phone] F: [phone] & [facility] F: [phone]
--- NOTE | 2019-06-23 19:59 | Consultation ---
DATE OF CONSULTATION: 06/21/2019 INFECTIOUS DISEASES CONSULTATION CONSULTING PHYSICIAN: Diomedes Saleem M.D. ATTENDING PHYSICIAN: Delonte Tomlinson M.D. REFERRING PHYSICIAN: Delonte Tomlinson M.D. REASON FOR CONSULTATION: Possible COVID-19 virus infection. CHIEF COMPLAINT: The patient's chief complaint coming into the hospital is COPD exacerbation, atrial fibrillation. HISTORY OF PRESENT ILLNESS: This is a 64-year-old female who I saw in the ER at [facility]. The patient coming in with COPD exacerbation. I was concerned the patient could have COVID-19 virus infection because of shortness of breath. The patient was started empirically on treatment for COPD including steroids, hydroxychloroquine, and azithromycin. When I saw in the emergency room, she was only on the steroids. COVID-19 test was pending. REVIEW OF SYSTEMS: Main issue is shortness of breath, cough, and congestion. No fever or chills.CARDIAC: No chest pain. GASTROINTESTINAL: No nausea, vomiting, or diarrhea. GENITOURINARY: No Childress. No dysuria or frequency. PULMONARY: She has shortness of breath. PAST MEDICAL HISTORY: The patient has a past medical history of the following. The patient has a past medical history of paroxysmal atrial fibrillation with rapid ventricular response, history of cardiac ischemia, COPD, history of bronchospasm, diastolic CHF. No history of diabetes or hypertension. ALLERGIES: No known drug allergies. SOCIAL HISTORY: Negative for smoking, alcohol, or drug abuse. FAMILY HISTORY: Noncontributory. MEDICATIONS: Upon reviewing the MAR, she is on following medications. She was on methylprednisolone, heparin, potassium, metoprolol. I believe she is going to be started on azithromycin and hydroxychloroquine also. Outside medications noted and reconciliated. PHYSICAL EXAMINATION: VITAL SIGNS: When I saw the patient, temperature 98.3, pulse rate 78, respiratory rate 18, blood pressure 132/67, saturation 95%. No fevers. GENERAL: Alert and responsive, no distress. HEAD AND NECK: Oral exam, no thrush. Eye exam, no icterus. Normocephalic. Neck is supple. HEART: Regular. No gallop or murmur. ABDOMEN: Soft. Positive bowel sounds. Nontender. LUNGS: few bilateral rhonchi SKIN: No rashes. MUSCULOSKELETAL: No effusion. Legs are without cellulitis. PERIPHERAL VASCULAR: No cyanosis. GENITOURINARY: No Childress. LINES: Line sites without phlebitis. NEUROLOGIC: Intact and nonfocal. Alert. The patient seen in the ER. LABORATORY AND DIAGNOSTIC DATA: White count 10.0, hemoglobin 15.1. Creatinine 0.6. Chest x-ray showed no acute disease. COVID-19 virus PCR testing is pending. ASSESSMENT AND PLAN: 1. The patient has COPD exacerbation, rule out COVID-19 virus infection. Continue steroids, possible need for azithromycin, Plaquenil or hydroxychloroquine. Await COVID-19 virus testing. Continue other treatment per Dr. Tomlinson. Continue COVID-19 virus isolation, pending testing results. 2. COPD. 3. CHF. 4. Atrial fibrillation with rapid ventricular response. 5. Myocardial ischemia. 6. No known drug allergies. 7. Social history is negative. 8. Family history is noncontributory. 9. MAR was noted. 10. Case discussed with RN. Diomedes Saleem M.D. DR: Radha JOB#: [id number] CC: KHOI
== END 2019-06-22 14:20 | disposition short-term general hospital (02) | DRG 190 ==
LOC: EDBD 03:20 → EMR 03:40 → 2W 05:14 → EDBEDREQ 21:22
DX: J44.1 Chronic obstructive pulmonary disease with (acute) exacerbation (principal); I50.31 Acute diastolic (congestive) heart failure; I48.20 Chronic atrial fibrillation, unspecified; I48.0 Paroxysmal atrial fibrillation; R09.02 Hypoxemia; F17.200 Nicotine dependence, unspecified, uncomplicated; I25.9 Chronic ischemic heart disease, unspecified
CPT/HCPCS: 36415; 36600; 71045; 80048; 80053; 80061; 81003; 82550; 82553; 82803; 83605; 83690; 83735; 83880; 84484; 85007; 85025; 85379; 85730; 86710; 87040; 87635; 96365; 96372; 96375; 96376; 99291

== ENCOUNTER 2019-07-06 10:06 | Inpatient (IN) | payer OTHER ==
[~2019-07-06] VITALS: Ht 160 cm; Wt 44.5 kg
[2019-07-06] VITALS (8 sets, daily range): BP systolic 106–143; BP diastolic 54–101
[~2019-07-06 10:06] MED LIST changes: +ALBUTEROL2.5 MG/3 M INH
--- NOTE | 2019-07-06 10:34 | Emergency Room Report ---
History of Present Illness General Chief Complaint: Dyspnea/Respdistress Source: Patient, Medical Record Present Illness HPI 64-year-old female presents the ED for evaluation of shortness of breath. Coming from home. Brought in by EMS. History of COPD. Given breathing treatments with symptoms improved. Denies cough. Denies fevers or chills. Denies chest pain. Says she has been tested twice recently for COVID and tested negative. Last test was on recent hospitalization here. No other aggravating relieving factors. Denies any other associated symptoms Allergies: Coded Allergies: NO KNOWN ALLERGIES (Unverified Allergy, Unknown, 11/28/14) COVID-19 Screening Contact w/high risk pt: No Recent Travel to affected area: No Experienced COVID-19 symptoms?: Yes COVID-19 symptoms experienced: Shortness of Breath Patient History Past Medical History: HTN, asthma, COPD Past Surgical History: none Pertinent Family History: none Social History: Denies: smoking, alcohol use, drug use Now: No Immunizations: UTD Reviewed Nursing Documentation: PMH: Agreed; PSxH: Agreed Nursing Documentation-PMH Past Medical History: No History, Except For Hx Hypertension: Yes Hx Asthma: Yes Hx COPD: Yes Hx Cancer: No Hx Neurological Problems: Yes Hx Tremors: Yes Hx Vertigo: Yes Hx Dizziness: Yes Hx Syncope: Yes Hx Headaches: Yes Hx Numbness: Yes Hx Weakness: Yes Hx Fatigue: Yes Review of Systems All Other Systems: negative except mentioned in HPI Physical Exam Vital Signs Date Time Temp Pulse Resp B/P (MAP) Pulse Ox O2 Delivery O2 Flow Rate FiO2 07/06/19 10:01 98.1 96 20 213/108 (143) 99 Nasal Cannula 8.0 Sp02 EP Interpretation: reviewed, normal General Appearance: no apparent distress, alert, GCS 15, non-toxic, thin Head: normocephalic, atraumatic Eyes: bilateral eye normal inspection, bilateral eye PERRL ENT: hearing grossly normal, normal pharynx, no angioedema, normal voice Neck: full range of motion, supple/symm/no masses Respiratory: chest non-tender, speaking full sentences, wheezing Cardiovascular #1: regular rate, rhythm, no edema Cardiovascular #2: 2+ carotid (R), 2+ carotid (L), 2+ radial (R), 2+ radial (L) , 2+ dorsalis pedis (R), 2+ dorsalis pedis (L) Gastrointestinal: normal bowel sounds, non tender, soft, non-distended, no guarding, no rebound Rectal: deferred Genitourinary: normal inspection, no CVA tenderness Musculoskeletal: back normal, normal range of motion, gait/station normal, non- tender Neurologic: alert, motor strength/tone normal, oriented x3, sensory intact, responsive, speech normal Psychiatric: judgement/insight normal, memory normal, mood/affect normal, no suicidal/homicidal ideation Reflexes: 3+ bicep (R), 3+ bicep (L), 3+ tricep (R), 3+ tricep (L), 3+ knee (R) , 3+ knee (L) Skin: no rash Lymphatic: no adenopathy Procedures Critical Care Time Critical Care Time i. I feel this is a highly complex case requiring extensive working including EKG/Rhythm strip, Xray/CT/US, Blood/urine lab work, repeat exams while in ED, and administration of strong opiates/narcotics for pain control, admission to hospital or close patient follow up. Total time: 45 min bedside evaluation and treatment excludes procedures (EKG). Reason for critical care: COPD, respiratory distress Possible complications: hypotension, hypertension, RI, shock, arrhythmias, metabolic acidosis, end organ damage, respiratory failure. Interventions: Labs, nebulizer treatments, EKG, chest x-ray, Solu-Medrol, magnesium, terbutaline, BiPAP, antibiotics Course: Patient in shortness of breath. History of COPD. History of lung cancer. Given breathing treatments with no improvement. Given prednisone. Given Solu-Medrol. Given terbutaline. Give magnesium. Given continued breathing treatments without significant improvement. Patient started on BiPAP. Consultations: nursing staff, EMS, family Performed by: Dr Claros Tolerated well condition = serious j. because of unstable vital signs this patient had a condition that could potentially threaten life or limb. I feel this is a critical patient who required my full attention while patient was considered critical. Total Critical Care Time excluding procedures was greater than 45 minutes Medical Decision Making Diagnostic Impression: Primary Impression: COPD (chronic obstructive pulmonary disease) Qualified Codes: J44.9 - Chronic obstructive pulmonary disease, unspecified ER Course Hospital Course 64-year-old F presenting to ED with SOB. h/o COPD Differential diagnoses include: Pneumonia, CHF exacerbation, pneumothorax, fluid overload Clinical course Patient placed on stretcher. On air sampling and monitoring with stable vitals. After initial history and physical, I ordered nebulizer treatments. On reassessment patient states she is having trouble breathing. I ordered labs , IV fluids, EKG, chest x-ray. I ordered additional breathing treatments, magnesium, terbutaline. Patient continues to have trouble breathing. Labs - leukocytosis noted, hemoglobin/hematocrit stable, electrolytes okay, troponins negative CXR - hyperinflated lungs. no infiltrates EKG - NSR no acute ischemic changes interpreted by me Patient started on BiPAP. Respiratory status improved. Case discussed with Dr. Tomlinson and he agreed to the patient to his service for further care and support I feel this is a highly complex case requiring extensive working including EKG/ Rhythm strip, Xray/CT/US, Blood/urine lab work, repeat exams while in ED, and administration of strong opiates/narcotics for pain control, admission to hospital or close patient follow up. Diagnosis - COPD exacerbation Patient admitted to SDU in serious condition Labs Test 07/06/19 11:40 White Blood Count 21.6 K/UL (4.8-10.8) Red Blood Count 4.85 M/UL (4.20-5.40) Hemoglobin 13.7 G/DL (12.0-16.0) Hematocrit 41.2 % (37.0-47.0) Mean Corpuscular Volume 85 FL (80-99) Mean Corpuscular Hemoglobin 28.2 PG (27.0-31.0) Mean Corpuscular Hemoglobin Concent 33.3 G/DL (32.0-36.0) Red Cell Distribution Width 12.8 % (11.6-14.8) Platelet Count 228 K/UL (150-450) Mean Platelet Volume 5.7 FL (6.5-10.1) Neutrophils (%) (Auto) % (45.0-75.0) Lymphocytes (%) (Auto) % (20.0-45.0) Monocytes (%) (Auto) % (1.0-10.0) Eosinophils (%) (Auto) % (0.0-3.0) Basophils (%) (Auto) % (0.0-2.0) Differential Total Cells Counted 100 Neutrophils % (Manual) 92 % (45-75) Lymphocytes % (Manual) 4 % (20-45) Monocytes % (Manual) 4 % (1-10) Eosinophils % (Manual) 0 % (0-3) Basophils % (Manual) 0 % (0-2) Band Neutrophils 0 % (0-8) Platelet Estimate Adequate Platelet Morphology Normal Red Blood Cell Morphology Normal Sodium Level 137 MMOL/L (136-145) Potassium Level 4.2 MMOL/L (3.5-5.1) Chloride Level 100 MMOL/L (98-107) Carbon Dioxide Level 29 MMOL/L (21-32) Anion Gap 8 mmol/L (5-15) Blood Urea Nitrogen 20 mg/dL (7-18) Creatinine 0.7 MG/DL (0.55-1.30) Estimat Glomerular Filtration Rate > 60 mL/min (>60) Glucose Level 124 MG/DL (74-106) Calcium Level 8.7 MG/DL (8.5-10.1) Total Bilirubin 0.5 MG/DL (0.2-1.0) Aspartate Amino Transf (AST/SGOT) 25 U/L (15-37) Alanine Aminotransferase (ALT/SGPT) 25 U/L (12-78) Alkaline Phosphatase 67 U/L (46-116) Troponin I 0.016 ng/mL (0.000-0.056) Pro-B-Type Natriuretic Peptide 1199 pg/mL (0-125) Total Protein 6.3 G/DL (6.4-8.2) Albumin 2.9 G/DL (3.4-5.0) Globulin 3.4 g/dL Albumin/Globulin Ratio 0.9 (1.0-2.7) EKG Diagnostic Results Rate: normal Rhythm: NSR ST Segments: no acute changes ASA given to the pt in ED: No Rhythm Strip Diag. Results EP Interpretation: yes Rhythm: NSR, no PVC's, no ectopy Chest X-Ray Diagnostic Results Chest X-Ray Diagnostic Results : Chest X-Ray Ordered: Yes # of Views/Limited/Complete: 1 View Indication: Shortness of Breath EP Interpretation: Yes Interpretation: no consolidation, no effusion, no pneumothorax, no acute cardiopulmonary disease Impression: No acute disease Electronically Signed by: Electronically signed by Guero Claros MD Last Vital Signs Date Time Temp Pulse Resp B/P (MAP) Pulse Ox O2 Delivery O2 Flow Rate FiO2 07/06/19 10:01 98.1 96 20 213/108 (143) 99 Nasal Cannula 8.0 Status: improved Disposition: ADMITTED INPATIENT Condition: Serious Guero Claros MD Jul 06, 2019 10:34
[2019-07-06] MEDS: Ipratropium 0.02% Inh Soln 2.5ml UD HHN SCH ×2 (10:47→10:49)
[2019-07-06] MEDS: Albuterol ud Inhalation HHN SCH ×2 (10:47→10:49)
[2019-07-06] MEDS ORDERED: Terbutaline 1mg/ml Inj SUBQ ONE (11:30)
[2019-07-06 13:24] LABS: ANION GAP 8 mmol/L (5-15); BLOOD UREA NITROGEN 20 mg/dL (7-18); CALCIUM 8.7 MG/DL (8.5-10.1); CARBON DIOXIDE 29 MMOL/L (21-32); CHLORIDE 100 MMOL/L (98-107); CREATININE 0.7 MG/DL (0.55-1.30); HEMATOCRIT 41.2 % (37.0-47.0); HEMOGLOBIN 13.7 G/DL (12.0-16.0); MEAN CORPUSCULAR VOLUME 85 FL (80-99); PLATELET COUNT 228 K/UL (150-450); POTASSIUM 4.2 MMOL/L (3.5-5.1); RED BLOOD COUNT 4.85 M/UL (4.20-5.40); RED CELL DISTRIBUTION WIDTH 12.8 % (11.6-14.8); SODIUM 137 MMOL/L (136-145); WHITE BLOOD COUNT 21.6 K/UL (4.8-10.8)
--- NOTE | 2019-07-06 13:35 | Diagnostic Imaging Report ---
Indication: Shortness of breath Technique: One view of the chest Comparison: 06/21/2019 Findings: There is thoracic scoliotic deformity. The heart size is normal. The aorta is tortuous and calcified. The lungs and pleural spaces remain clear. No significant interim change Impression: No acute process
[2019-07-06 13:36] LABS: ALANINE AMINOTRANSFERASE 25 U/L (12-78); ALBUMIN 2.9 G/DL (3.4-5.0); ALBUMIN/GLOBULIN RATIO 0.9 (1.0-2.7); ALKALINE PHOSPHATASE 67 U/L (46-116); ASPARTATE AMINO TRANSFERASE 25 U/L (15-37); BILIRUBIN,TOTAL 0.5 MG/DL (0.2-1.0)
[2019-07-06] MEDS ORDERED: Levalbuterol Inh UD 1.25mg/0.5ml HHN ONE (13:45)
[2019-07-06] MEDS ORDERED: Ipratropium 0.02% Inh Soln 2.5ml UD HHN ONE (13:45)
[2019-07-06] MEDS ORDERED: guaiFENesin w/Codeine 5ml Liq ud ORAL ONE (14:30)
[2019-07-06] MEDS ORDERED: LORazepam 0.5mg tab ORAL ONE (15:15)
[2019-07-06] MEDS ORDERED: Albuterol ud Inhalation HHN ONE (15:15)
[2019-07-06] MEDS ORDERED: Albuterol ud Inhalation ONE (17:40)
[2019-07-06] MEDS ORDERED: HYDROcodone/Acetamin 5/325 tab ORAL PRN (22:45)
[2019-07-06] MEDS: Solu-MEDROL 40mg Inj IVP SCH (23:22)
[2019-07-06] MEDS: ALPRAZolam 0.5mg tab ORAL PRN (23:22)
[2019-07-07] VITALS: BP 127/80
[2019-07-07 04:00] VITALS: BP 146/89
[2019-07-07] MEDS: Solu-MEDROL 40mg Inj IVP SCH ×3 (05:24→17:12)
[2019-07-07] MEDS: ALPRAZolam 0.5mg tab ORAL PRN ×2 (05:24→11:42)
[2019-07-07 06:09] LABS: HEMOGLOBIN 13.9 G/DL (12.0-16.0); MEAN CORPUSCULAR VOLUME 85 FL (80-99); PLATELET COUNT 198 K/UL (150-450); RED BLOOD COUNT 4.84 M/UL (4.20-5.40); RED CELL DISTRIBUTION WIDTH 12.9 % (11.6-14.8)
[2019-07-07 06:24] LABS: ANION GAP 7 mmol/L (5-15); BLOOD UREA NITROGEN 16 mg/dL (7-18); CALCIUM 8.8 MG/DL (8.5-10.1); CARBON DIOXIDE 29 MMOL/L (21-32); CHLORIDE 100 MMOL/L (98-107); CREATININE 0.6 MG/DL (0.55-1.30); POTASSIUM 4.5 MMOL/L (3.5-5.1); SODIUM 135 MMOL/L (136-145)
[2019-07-07 08:00] VITALS: BP 150/110
[2019-07-07] MEDS ORDERED: Sertraline 50mg tab ORAL SCH (09:00)
[2019-07-07] MEDS ORDERED: Metoprolol Succinate XL 50mg tab ORAL SCH (09:00)
[2019-07-07 11:49] VITALS: BP 150/100
[2019-07-07] MEDS ORDERED: ALPRAZolam 0.5mg tab ORAL PRN (14:45)
[2019-07-07] MEDS ORDERED: Guaifenesin/DM 10ml syrup ORAL PRN (14:45)
[2019-07-07 16:00] VITALS: BP 151/106
--- NOTE | 2019-07-07 19:59 | History and Physical Report ---
DATE OF ADMISSION: 07/06/2019 HISTORY OF PRESENT ILLNESS: This is a 64-year-old female who came to the hospital with shortness of breath. She has a history of advanced COPD. She is not on home oxygen. She was seen, evaluated, and placed on a BiPAP. This morning, she states she is feeling better. She denies cough or fevers. She states that she has been tested recently for COVID-19 and is negative. She is an active smoker. She also admits to using Xanax at home. PAST MEDICAL HISTORY: Hypertension, asthma, COPD. PAST SURGICAL HISTORY: None. HOME MEDICATIONS: Reviewed and reconciled in chart. REVIEW OF SYSTEMS: Denies any headaches, hematemesis, melena, hematochezia, night sweats, or weight loss. PHYSICAL EXAMINATION: GENERAL: Reveals a 64-year-old female. HEENT: Unremarkable. CHEST: Diminished breath sounds bilaterally with normal heart sounds. ABDOMEN: Soft. EXTREMITIES: There is no edema. VITAL SIGNS: Blood pressure is 150/90, heart rate is 100, respirations are 20, she is afebrile, O2 saturation is 100% on BiPAP. After discontinuing BiPAP, O2 saturation is 100% on 4 liters of oxygen. IMAGING STUDIES: X-ray of chest is negative. LABORATORY DATA: Lab testing shows normal CBC and BMP with the exception of white count 20,000. Glucose 124. IMPRESSION: 1. Exacerbation of COPD. 2. Hypertension. 3. Smoker. 4. Anxiety. DISCUSSION: Admit to the hospital. Patient's insurance is requesting transfer to contracted facility. We will go ahead and arrange transfer at their request. In the interim, continue steroids, antibiotics, and pulmonary hygiene. Delonte Tomlinson M.D. DR: ISABELLE JOB#: [id number] CC:
--- NOTE | 2019-07-08 17:41 | Discharge Summary ---
Discharge Summary Discharge Summary _ DATE OF ADMISSION: 07/06/2019 DATE OF DISCHARGE: 07/06 DISCHARGED BY: REASON FOR ADMISSION: 64 years old female with past medical history of advanced COPD, active smoker, hypertension, presented for evaluation due to shortness of breath. Patient seen and evaluated and placed on the BiPAP. Vital signs revealed hypoxia and elevated blood pressure. Patient denied cough or fever. Patient recently was tested for COVID-19, which was negative. Chest x-ray demonstrated no acute cardiopulmonary pathology. Laboratory work-up revealed leukocytosis with WBC 21.6, stable hemoglobin , hematocrit and platelet count. BUN 20, creatinine 0.7. Glucose 124. Troponin 0.016. pro BNP 1199. EKG revealed sinus rhythm , no acute ischemic changes. Patient admitted with COPD exacerbation to stepdown unit. HOSPITAL COURSE: Patient admitted to stepdown unit. Patient was placed on the BiPAP. Patient started on IV steroids and empiric antibiotic. Supplemental oxygen further titrated to keep pulse oximetry above 92%. Nebulizing treatment provided. Patient was tested in the emergency room for COVID-19 which came back negative. Antitussive provided as needed. Home medication resumed. Pain management was addressed as needed. Anxiolytic provided on as needed basis. Transfer was arranged to insurance affiliated facility. Patient was stable for transfer. FINAL DIAGNOSES: COPD exacerbation Hypertension Active smoker Anxiety DISCHARGE MEDICATIONS: List of medication was sent to accepting facility DISCHARGE INSTRUCTIONS: Patient was discharged to [facility] as insurance affiliated facility. I have been assigned to dictate discharge summary for this account. I was not involved in the patient's management. Raina Dumont NP Jul 08, 2019 17:41
== END 2019-07-07 20:43 | disposition short-term general hospital (02) | DRG 192 ==
LOC: EDBD 10:06 → EMR 10:40 → EDBEDREQ 15:49 → EDBEDREQSVC 15:49 → 2W 17:00 → EDBEDREQ 21:48
PROC: 5A09457 Assistance with Respiratory Ventilation, 24-96 Consecutive Hours, Continuous Positive Airway Pressure (ICD-10-PCS; principal; 2019-07-06)
DX: J44.1 Chronic obstructive pulmonary disease with (acute) exacerbation (principal); I10 Essential (primary) hypertension; F17.200 Nicotine dependence, unspecified, uncomplicated; F41.9 Anxiety disorder, unspecified
CPT/HCPCS: 36415; 71045; 80048; 80053; 83880; 84484; 85007; 85025; 87635; 93005; 94660; 94664; 96365; 96366; 96368; 96372; 99291; J7030